=== PATIENT | male | born 1980 | race Caucasian/White ===

== ENCOUNTER → 2020-01-02 | Outpatient (REF) | payer BC | LOC: M LAB REF 17:49 | PROVIDERS: ATTEND Physician Assistant Medical | DX: Z11.59 Encounter for screening for other viral diseases (principal); Z20.828 Contact with and (suspected) exposure to other viral communicable diseases ==

== ENCOUNTER → 2021-06-03 | Outpatient (CLI) | payer BC ==
--- NOTE | 2021-06-03 13:43 | REP ---
INDICATION: COUGH COMPARISON: 02/20/2008 TECHNIQUE: PA and lateral. FINDINGS: The mediastinum and cardiac silhouette are normal. The lung ferrara are clear and without acute consolidation, effusion, or pneumothorax. The skeletal structures are intact and normal. IMPRESSION: No acute cardiopulmonary process. <Electronically signed by Everett Dove > 06/03/21 2920
== END ==
LOC: M WUC 13:01
PROVIDERS: ATTEND Internal Medicine
DX: R05.9 Cough, unspecified (principal)

== ENCOUNTER → 2022-10-11 | Outpatient (REF) | payer BC ==
[2022-10-11 14:12] LABS: PERCENT SATURATION 28.2 % (19.7-50.0)
[2022-10-11 14:15] LABS: FERRITIN 94.5 NG/ML (10.5-307.3)
== END ==
LOC: M LAB REF 12:50
PROVIDERS: ATTEND Internal Medicine
DX: R74.01 Elevation of levels of liver transaminase levels (principal)

== ENCOUNTER → 2023-01-16 | Outpatient (CLI) | payer BC | LOC: M RAD 14:43 | PROVIDERS: ATTEND Nurse Practitioner Family | DX: N43.3 Hydrocele, unspecified (principal); N50.89 Other specified disorders of the male genital organs; N50.3 Cyst of epididymis ==

== ENCOUNTER → 2023-03-07 | Outpatient (CLI) | payer BC | LOC: M PLALAB 09:52 | PROVIDERS: ATTEND Physician Assistant | DX: N50.89 Other specified disorders of the male genital organs (principal) ==